=== PATIENT | male | born 1995 | race Caucasian/White ===

== ENCOUNTER 2019-07-23 14:21 | Emergency (ER) | payer MEDICARE, MEDICAID ==
[2019-07-23 14:35] VITALS: BP 121/67; PULSE 82
--- NOTE | 2019-07-23 14:43 | EDM.PDOC ---
ED HPI GENERAL MEDICAL PROBLEM - General Chief Complaint: Allergic Reaction Stated Complaint: FISH ISSUES Time Seen by Provider: 07/23/19 14:37 Source of Information: Reports: Patient History Limitations: Reports: No Limitations - History of Present Illness INITIAL COMMENTS - FREE TEXT/NARRATIVE: HISTORY AND PHYSICAL: History of present illness: Patient is a 24-year-old male presents to the ED with complaint of allergic reaction. 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 He states he developed a rash on his arms afterwards and used some cream and has since gone away. He denies any shortness of breath, oropharyngeal swelling, hoarseness, throat itching. He denies history of anaphylaxis. Review of systems: As per history of present illness and below otherwise all systems reviewed and negative. Past medical history: As per history of present illness and as reviewed below otherwise noncontributory. Surgical history: As per history of present illness and as reviewed below otherwise noncontributory. Social history: No reported history of drug or alcohol abuse. Family history: As per history of present illness and as reviewed below otherwise noncontributory. Physical exam: General: Patient sitting comfortably in no acute distress and nontoxic appearing HEENT: Atraumatic, normocephalic, pupils reactive, negative for conjunctival pallor or scleral icterus, mucous membranes moist, throat clear, neck supple, nontender, trachea midline. No meningeal signs. Lungs: Clear to auscultation, breath sounds equal bilaterally, chest nontender. Heart: S1S2, regular, negative for clicks, rubs, or overt murmur. Abdomen: Soft, nondistended, nontender. Negative for masses or hepatosplenomegaly. Negative for costovertebral tenderness. No rigidity, rebound , guarding. Pelvis: Stable nontender. Genitourinary: Deferred. Rectal: Deferred. Extremities: Atraumatic, negative for cords or calf pain. Neurovascular unremarkable. Neuro: Awake, alert, oriented. Cranial nerves II through XII unremarkable. Cerebellum unremarkable. Motor and sensory unremarkable throughout. Exam nonfocal. Notes: Diagnostics: none Therapeutics: [] Prescriptions: Impression: Rash Plan: Follow up with primary care provider Return to ED as needed as discussed Definitive disposition and diagnosis as appropriate pending reevaluation and review of above. - Related Data Allergies Allergy/AdvReac Type Severity Reaction Status Date / Time No Known Allergies Allergy Verified 08/30/16 16:31 Home Meds: Home Meds . [No Known Home Meds] 07/23/19 [History] Past Medical History Other Psychiatric History: reports has been on meds but does not take any longer - Past Surgical History HEENT Surgical History: Reports: Eye Surgery Social & Family History - Family History Family Medical History: Noncontributory - Caffeine Use Caffeine Use: Reports: None ED ROS ALLERGIC REACTION - Review of Systems Review Of Systems: ROS reveals no pertinent complaints other than HPI. ED EXAM GENERAL NO PERIP PULSE - Physical Exam Exam: See Below (see dictation) Course - Vital Signs Last Recorded V/S: Last Vital Signs Temp 97.8 F 07/23/19 14:32 Pulse 82 07/23/19 14:32 Resp 16 07/23/19 14:32 BP 121/67 07/23/19 14:32 Pulse Ox 95 07/23/19 14:32 Departure - Departure Time of Disposition: 14:43 Disposition: Home, Self-Care 01 Condition: Good Clinical Impression: Rash - Discharge Information Instructions: Contact Dermatitis, [id number] Referrals: PCP,Unknown [Primary Care Provider] - Forms: ED Department Discharge Additional Instructions: The following information is given to patients seen in the emergency department who are being discharged to home. This information is to outline your options for follow-up care. We provide all patients seen in our emergency department with a follow-up referral. The need for follow-up, as well as the timing and circumstances, are variable depending upon the specifics of your emergency department visit. If you don't have a primary care physician on staff, we will provide you with a referral. We always advise you to contact your personal physician following an emergency department visit to inform them of the circumstance of the visit and for follow-up with them and/or the need for any referrals to a consulting specialist. The emergency department will also refer you to a specialist when appropriate. This referral assures that you have the opportunity for follow-up care with a specialist. All of these measure are taken in an effort to provide you with optimal care, which includes your follow-up. Under all circumstances we always encourage you to contact your private physician who remains a resource for coordinating your care. When calling for follow-up care, please make the office aware that this follow-up is from your recent emergency room visit. If for any reason you are refused follow-up, please contact the [facility] at and asked to speak to the emergency department charge nurse. [facility] [address] [place] [id number] [address] Take benadryl as instructed Follow up with primary care provider Return to ED as needed as discussed
== END 2019-07-23 15:00 | disposition home or self-care (01) ==
LOC: MW.ED 14:21
DX: R21 Rash and other nonspecific skin eruption (principal)
CPT/HCPCS: 99283

== ENCOUNTER 2019-11-09 09:01 | Emergency (ER) | payer OTHER, MEDICARE ==
--- NOTE | 2019-11-09 09:13 | EDM.PDOC ---
ED HPI GENERAL MEDICAL PROBLEM - General Chief Complaint: General Stated Complaint: HURT RIBS Time Seen by Provider: 11/09/19 09:13 Source of Information: Reports: Patient History Limitations: Reports: No Limitations - History of Present Illness INITIAL COMMENTS - FREE TEXT/NARRATIVE: This 24 year old male states that while working, he slipped on ice while holding a 50 pound plug valve. He states that the valve released from his hand going upward about two feet landing on the lower lateral chest wall and the upper lateral abdomen. He complains of increasing left chest wall pain and well as generalized pain in his abdomen. He denies any other symptoms at this time. Onset: Gradual (two days ago he slipped on ice while holding a 50 pound plug valve striking him on the left lower chest wall and upper left abdomen.) Duration: Day(s): (two), Getting Worse Location: Reports: Chest, Abdomen Quality: Reports: Dull, Sharp Severity: Mild (to moderate) Improves with: Reports: Immobilization Worsens with: Reports: Breathing (complains of mild SOB), Movement Context: Reports: Other (working) left chest Pain Score (Numeric/FACES): 5 - Related Data Allergies Allergy/AdvReac Type Severity Reaction Status Date / Time No Known Allergies Allergy Verified 11/09/19 09:09 Home Meds: Home Meds Ibuprofen [Motrin] 800 mg PO TID PRN 7 Days #21 tablet 11/09/19 [Rx] Past Medical History Other Psychiatric History: reports has been on meds but does not take any longer - Infectious Disease History Infectious Disease History: Reports: None - Past Surgical History HEENT Surgical History: Reports: Eye Surgery Social & Family History - Family History Family Medical History: Noncontributory - Caffeine Use Caffeine Use: Reports: None ED ROS GENERAL - Review of Systems Review Of Systems: See Below Constitutional: Reports: No Symptoms HEENT: Reports: No Symptoms Respiratory: Reports: Shortness of Breath (mild) Cardiovascular: Reports: Chest Pain (left lateral chest wall). Denies: Lightheadedness, Palpitations Endocrine: Reports: No Symptoms GI/Abdominal: Reports: Abdominal Pain : Reports: No Symptoms Musculoskeletal: Reports: No Symptoms Skin: Reports: No Symptoms Neurological: Reports: No Symptoms ED EXAM, GENERAL - Physical Exam Exam: See Below Exam Limited By: No Limitations General Appearance: Alert, WD/WN, No Apparent Distress Eye Exam: Bilateral Eye: EOMI, Normal Inspection, PERRL (4mm and reactive) Ears: Normal External Exam, Normal Canal, Hearing Grossly Normal, Normal TMs Ear Exam: Bilateral Ear: Auricle Normal, Canal Normal, TM normal Nose: Normal Inspection, Normal Mucosa, No Blood Throat/Mouth: Normal Inspection, Normal Lips, Normal Teeth, Normal Gums, Normal Oropharynx, Normal Voice, No Airway Compromise Head: Atraumatic, Normocephalic Neck: Normal Inspection, Supple, Non-Tender, Full Range of Motion Respiratory/Chest: No Respiratory Distress, Lungs Clear, Normal Breath Sounds, Splinting (slight splinting on the left side.), Other (tenderness is noted over the left lateral 9-11 ribs. No crepitis) Cardiovascular: Normal Peripheral Pulses, Regular Rate, Rhythm, No Edema, No Gallop, No JVD, No Murmur, No Rub Peripheral Pulses: 3+: Dorsalis Pedis (L), Dorsalis Pedis (R), 4+: Carotid (L), Carotid (R), Radial (L), Radial (R) GI/Abdominal: Normal Bowel Sounds, Soft, No Organomegaly, No Distention, No Abnormal Bruit, Tender (mild tenderness is noted over the left upper to lateral abdomen.). No: Guarding, Rebound (Male) Exam: Deferred Rectal (Males) Exam: Deferred Back Exam: Normal Inspection, Full Range of Motion, NT Extremities: Normal Inspection, Normal Range of Motion, Non-Tender, Normal Capillary Refill, No Pedal Edema Neurological: Alert, Oriented, CN II-XII Intact, Normal Reflexes Skin Exam: Warm, Dry, Intact, Normal Color, No Rash Lymphatic: No Adenopathy Course - Vital Signs Text/Narrative:: The patient did well while in the ED. All of his CT scans were negative for any acute pathology. He will be discharged with no work for two days. The patient agrees with the discharge plan. Last Recorded V/S: Last Vital Signs Temp 96.9 F 11/09/19 09:10 Pulse 87 11/09/19 09:10 Resp 18 11/09/19 09:10 BP 125/68 11/09/19 09:10 Pulse Ox 97 11/09/19 09:10 - Orders/Labs/Meds Orders: Active Orders 24 hr Category Date Time Status Ibuprofen [Motrin] Med 11/09/19 12:15 Once 800 mg PO ONETIME ONE Medication Orders Ibuprofen (Motrin) 800 mg PO ONETIME ONE Stop: 11/09/19 12:16 Labs: Laboratory Tests 11/09/19 11/09/19 Range/Units 09:32 09:32 WBC 7.14 (4.0-11.0) K/uL RBC 5.46 (4.50-5.90) M/uL Hgb 16.0 (13.0-17.0) g/dL Hct 48.3 (38.0-50.0) % MCV 88.5 (80.0-98.0) fL MCH 29.3 (27.0-32.0) pg MCHC 33.1 (31.0-37.0) g/dL RDW Std Deviation 45.3 (28.0-62.0) fl RDW Coeff of [place] 14 (11.0-15.0) % Plt Count 292 (150-400) K/uL MPV 9.50 (7.40-12.00) fL Neut % (Auto) 37.1 L (48.0-80.0) % Lymph % (Auto) 45.8 H (16.0-40.0) % [place] % (Auto) 9.8 (0.0-15.0) % Eos % (Auto) 6.9 (0.0-7.0) % Baso % (Auto) 0.4 (0.0-1.5) % Neut # (Auto) 2.7 (1.4-5.7) K/uL Lymph # (Auto) 3.3 H (0.6-2.4) K/uL [place] # (Auto) 0.7 (0.0-0.8) K/uL Eos # (Auto) 0.5 (0.0-0.7) K/uL Baso # (Auto) 0.0 (0.0-0.1) K/uL Nucleated RBC % 0.0 /100WBC Nucleated RBCs # 0 K/uL Sodium 142 (136-148) mmol/L Potassium 4.3 (3.5-5.1) mmol/L Chloride 104 (98-107) mmol/L Carbon Dioxide 28.5 (21.0-32.0) mmol/L BUN 13 (7.0-18.0) mg/dL Creatinine 1.0 (0.8-1.3) mg/dL Est Cr Clr Drug Dosing 112.92 mL/min Estimated GFR (MDRD) > 60.0 ml/min Glucose 114 H (74-106) mg/dL Calcium 9.4 (8.5-10.1) mg/dL Total Bilirubin 0.5 (0.2-1.0) mg/dL AST 17 (15-37) IU/L ALT 54 (14-63) IU/L Alkaline Phosphatase 96 (46-116) U/L Troponin I < 0.050 (0.000-0.056) ng/mL Total Protein 7.4 (6.4-8.2) g/dL Albumin 4.0 (3.4-5.0) g/dL Globulin 3.4 (2.6-4.0) g/dL Albumin/Globulin Ratio 1.2 (0.9-1.6) Meds: Medications Generic Name Dose Route Start Last Admin Trade Name Freq PRN Reason Stop Dose Admin Ibuprofen 800 mg 11/09/19 12:15 Motrin PO 11/09/19 12:16 ONETIME ONE Discontinued Medications Generic Name Dose Route Start Last Admin Trade Name Freq PRN Reason Stop Dose Admin Sodium Chloride 1,000 mls @ 1,000 mls/hr 11/09/19 09:27 11/09/19 09:35 Normal Saline IV 11/09/19 10:26 1,000 mls/hr .Bolus ONE Administration Iopamidol 100 ml 11/09/19 10:24 11/09/19 10:44 Isovue Multipack-370 (76%) IVPUSH 11/09/19 10:25 100 ml ONETIME STA Administration Departure - Departure Time of Disposition: 12:17 Disposition: Home, Self-Care 01 Condition: Good Clinical Impression: Chest wall contusion Qualifiers: Encounter type: initial encounter Laterality: left Qualified Code(s): S20.212A - Contusion of left front wall of thorax, initial encounter Abdominal wall contusion Qualifiers: Encounter type: initial encounter Qualified Code(s): S30.1XXA - Contusion of abdominal wall, initial encounter - Discharge Information *PRESCRIPTION DRUG MONITORING PROGRAM REVIEWED*: Yes *COPY OF PRESCRIPTION DRUG MONITORING REPORT IN PATIENT JG: Yes Instructions: Contusion, [id number], Chest Contusion, Adult, [id number] Referrals: PCP,None [Primary Care Provider] - Forms: ED Department Discharge, ED Return to Work/School Form Sepsis Event Note - Evaluation Sepsis Screening Result: No Definite Risk - Focused Exam Vital Signs: Vital Signs Temp Pulse Resp BP Pulse Ox 11/09/19 09:10 96.9 F 87 18 125/68 97 Date Exam was Performed: 11/09/19 Time Exam was Performed: 12:16 - My Orders Last 24 Hours: My Active Orders 11/09/19 12:15 Ibuprofen [Motrin] 800 mg PO ONETIME ONE - Assessment/Plan Last 24 Hours: My Active Orders 11/09/19 12:15 Ibuprofen [Motrin] 800 mg PO ONETIME ONE
[2019-11-09] MEDS ORDERED: Sodium Chloride 0.9% 1,000 ML IV ONE (09:27)
[2019-11-09] MEDS ORDERED: Iopamidol 755 MG/ML 500 ML Multipack Bottle IVPUSH STA (10:24)
[2019-11-09 10:35] LABS: BLOOD UREA NITROGEN,BUN 13 mg/dL (7.0-18.0); CARBON DIOXIDE,CO2 28.5 mmol/L (21.0-32.0); CHLORIDE,CL 104 mmol/L (98-107); GLUCOSE RANDOM 114 mg/dL (74-106); POTASSIUM,K 4.3 mmol/L (3.5-5.1); SODIUM,NA 142 mmol/L (136-148)
--- NOTE | 2019-11-09 11:18 | CT ---
The abdomen/pelvis CT report is included with today`s chest CT report. Please note that all CT scans at this facility use dose modulation, iterative reconstruction, and/or weight-based dosing when appropriate to reduce radiation dose to as low as reasonably achievable. Dictated by Mata Babcock MD @ Nov 09 2019 11:08AM Signed by Dr. Mata Babcock @ Nov 09 2019 11:17AM
--- NOTE | 2019-11-09 11:18 | CT ---
INDICATION: Blunt chest wall trauma 2 days ago. Left rib pain. TECHNIQUE: Volumetric helical scanning of the chest, abdomen and pelvis was performed with 100 cc of Isovue 370 contrast material IV. Coronal and sagittal reconstructions were obtained. COMPARISON: None FINDINGS: No pneumothorax, hemothorax or pulmonary contusion is evident. No rib, shoulder girdle or thoracic spine fracture is demonstrated. No mediastinal hematoma is apparent. The lungs are clear. No airway abnormality is demonstrated. The heart is normal in size. No free intraperitoneal blood is demonstrated. The liver, spleen, adrenal glands, kidneys and pancreas are intact. No lumbar spinal or pelvic fracture is evident. The biliary system is unremarkable. No lymphadenopathy is evident. The bowel is unremarkable. The prostate is unremarkable. IMPRESSION: Negative for acute traumatic abnormality in the chest, abdomen and pelvis. Please note that all CT scans at this facility use dose modulation, iterative reconstruction, and/or weight-based dosing when appropriate to reduce radiation dose to as low as reasonably achievable. Dictated by Mata Babcock MD @ Nov 09 2019 11:08AM Signed by Dr. Mata Babcock @ Nov 09 2019 11:16AM
[2019-11-09] MEDS ORDERED: Ibuprofen 800 MG Tab PO ONE (12:15)
[2019-11-09 12:29] VITALS: BP 125/57; PULSE 75
== END 2019-11-09 12:31 | disposition home or self-care (01) ==
LOC: MW.ED 09:01
DX: S20.212A Contusion of left front wall of thorax, initial encounter (principal); S30.1XXA Contusion of abdominal wall, initial encounter; W00.0XXA Fall on same level due to ice and snow, initial encounter
CPT/HCPCS: 36415; 71260; 74177; 80053; 84484; 85025; 96360; 99285; A9270; J7030; Q9967; 99284

== ENCOUNTER 2023-05-22 19:15 | Emergency (ER) | payer MEDICARE ==
[2023-05-22] MEDS ORDERED: Tetracaine HCl/PF 0.5% 4 ML Bottle EYEBOTH ONE (19:16)
[2023-05-22] MEDS ORDERED: Erythromycin Base 0.5% Ophth Oint 1 GM Tube EYELF ONE (20:20)
[2023-05-22 20:35] VITALS: BP 136/76; PULSE 77
== END 2023-05-22 20:34 | disposition home or self-care (01) ==
LOC: MW.ED 19:15
DX: T15.91XA Foreign body on external eye, part unspecified, right eye, initial encounter (principal); Z91.013 Allergy to seafood
CPT/HCPCS: 99283; A9270; 65205; 99282; J3490

== ENCOUNTER 2024-09-28 18:38 | Emergency (ER) | payer MEDICARE ==
[2024-09-28] MEDS: Iopamidol 755 Mg/ML 100 ML Bottle IVPUSH ONE (19:16)
[2024-09-28 20:38] VITALS: BP 132/80; PULSE 88
== END 2024-09-28 20:31 | disposition home or self-care (01) ==
LOC: MW.ED 18:38
DX: R09.A2 Foreign body sensation, throat (principal); F17.210 Nicotine dependence, cigarettes, uncomplicated; Z91.013 Allergy to seafood; Z75.8 Other problems related to medical facilities and other health care
CPT/HCPCS: 70491; 71260; 99283; Q9967